=== PATIENT | female | born 1980 | race Caucasian/White ===

== ENCOUNTER 2021-10-05 12:29 | Emergency (ER) | payer MEDICAID ==
[~2021-10-05] VITALS: Ht 167.6 cm; Wt 68.0 kg
[2021-10-05 12:38] VITALS: BP 105/69
--- NOTE | 2021-10-05 12:57 | NUR ---
PT C/O HEADACHE AND NECK PAIN X2 WEEKS. PT A&OX4 AND STABLE. VITAL SIGNS WITHIN NORMAL LIMITS.
[2021-10-05] MEDS ORDERED: NAPROXEN 250 MG TABLET PO ONE (13:00)
[2021-10-05] MEDS ORDERED: NAPROXEN 250 MG TABLET ONE (13:02)
--- NOTE | 2021-10-05 13:25 | NUR ---
PT RECIEVED HER MEDICATION AND LAST SEEN AT 1305. PATIENT WAS NO LONGER IN TREATMENT ROOM 2.
[2021-10-05] MEDS ORDERED: NAPR-1009 PO (13:43)
== END 2021-10-05 13:25 | disposition home or self-care (01) ==
LOC: ER 12:39
DX: G44.209 Tension-type headache, unspecified, not intractable (principal); M54.2 Cervicalgia

== ENCOUNTER 2022-07-05 13:06 | Emergency (ER) | payer MEDICAID ==
[~2022-07-05] VITALS: Ht 167.6 cm; Wt 77.1 kg
[~2022-07-05 13:06] MED LIST: NAPR-1009 PO
[2022-07-05 14:16] VITALS: BP 114/73
== END 2022-07-05 14:15 | disposition left against medical advice (07) ==
LOC: ER 13:15
DX: Z53.21 Procedure and treatment not carried out due to patient leaving prior to being seen by health care provider (principal)